=== PATIENT | female | born 1975 | race Caucasian/White ===

== ENCOUNTER 2020-09-27 14:28 | Emergency (ER) | payer MEDICAID, SELFPAY ==
[~2020-09-27] VITALS: Ht 157.5 cm; Wt 83.5 kg
[2020-09-27 14:31] VITALS: Ht 157.5 cm; Wt 83.5 kg
[2020-09-27 17:42] VITALS: BP 130/89
== END 2020-09-27 19:29 | disposition home or self-care (01) ==
LOC: ED 14:28
DX: R42 Dizziness and giddiness (principal); R11.0 Nausea; Z20.828 Contact with and (suspected) exposure to other viral communicable diseases
CPT/HCPCS: J8597; Q0162; U0003